=== PATIENT | male | born 1965 | race Caucasian/White ===

== ENCOUNTER 2021-12-22 01:44 | Emergency (ER) | payer OTHER ==
[2021-12-22] MEDS ORDERED: NA CHLORIDE 0.9% 1,000 ML ONE (02:22)
[2021-12-22 02:52] LABS: Protime INR 1.06
[2021-12-22 03:43] LABS: Absolute Lymphocytes (CBC) 2.1 K/uL (0.7-4.9); Hematocrit 38.6 % (39.6-49.0); Lymphocytes % 24.9 % (15.3-44.8); MCV 94.7 fL (80-100); MPV 8.3 fL (7.6-11.3); RBC Red Blood Cell Count 4.07 M/uL (4.33-5.43)
[2021-12-22 04:05] LABS: ALT/SGPT 65 U/L (12-78); AST/SGOT 69 U/L (15-37); Albumin 3.9 g/dL (3.4-5.0); Alkaline Phosphatase 83 U/L (45-117); BUN Blood Urea Nitrogen 33 mg/dL (7-18); Bicarbonate 25 mmol/L (21-32); Bilirubin Direct 0.4 mg/dL (0-0.2); Bilirubin Total 1.8 mg/dL (0.2-1.0); Glomerular Filtration Rate 79 ml/min (=/>90); Glucose Level 140 mg/dL (74-106); Potassium 3.6 mmol/L (3.5-5.1); Protein, Total 7.9 g/dL (6.4-8.2); Sodium Level 135 mmol/L (136-145)
--- NOTE | 2021-12-22 04:12 | ER ---
Nurse's Notes [facility] Name: José Miguel Brandon Age: 56 yrs Sex: Male : 1965 Arrival Date: 12/22/2021 Time: 01:46 Bed 19 Private MD: Diagnosis: Insomnia;Alcohol abuse;Other depressive episodes;Homelessness;Rhabdomyolysis Presentation: 12/22 01:51 Chief complaint: Patient states: "I have been watching trees talking to each other, I tw5 have been walking for 6 days I cannot sleep. I don't hear god anymore, but there aren't any missions, so out of mind out sight, everything hurts. I cannot relax. I just been walking and I am depressed.". Coronavirus screen: Vaccine status: Patient reports being unvaccinated. Ebola Screen: Patient negative for fever greater than or equal to 101.5 degrees Fahrenheit, and additional compatible Ebola Virus Disease symptoms Patient denies exposure to infectious person. Patient denies travel to an Ebola-affected area in the 21 days before illness onset. Initial Sepsis Screen: Does the patient meet any 2 criteria? No. Patient's initial sepsis screen is negative. Does the patient have a suspected source of infection? No. Patient's initial sepsis screen is negative. Risk Assessment: Do you want to hurt yourself or someone else? Patient reports no desire to harm self or others. Onset of symptoms is unknown. 01:51 Method Of Arrival: Ambulatory tw5 01:51 Acuity: LUIS FERNANDO 2 tw5 Triage Assessment: 01:53 General: Appears unkempt, Behavior is anxious. Pain: Pain currently is 10 out of 10 on tw5 a pain scale. Historical: - Allergies: 01:53 No Known Allergies; tw5 - Home Meds: 01:53 None [Active]; tw5 - PMHx: 01:53 Depressive disorder; 5 - PSHx: 01:53 Appendectomy; tw5 - Immunization history:: Flu vaccine is not up to date. - Social history:: Smoking status: Reported history of juuling and/or vaping. - Family history:: not pertinent. Screenin:54 Abuse screen: Denies threats or abuse. Denies injuries from another. Nutritional tw5 screening: Had unintentional weight loss of 10 pounds or more. Tuberculosis screening: No symptoms or risk factors identified. Fall Risk None identified. Vital Signs: 01:51 BP 112 / 77; Pulse 98; Resp 18; Temp 98.1; Pulse Ox 100% on R/A; Weight 72.57 kg; tw5 Height 6 ft. 2 in. (187.96 cm); Pain 10/10; 03:58 BP 127 / 91; Pulse 105; Resp 17; Pulse Ox 94% on R/A; ke1 04:48 BP 130 / 89; Pulse 98; Resp 19; Temp 98.0; Pulse Ox 97% on R/A; ke1 01:51 Body Mass Index 20.54 (72.57 kg, 187.96 cm) tw5 ED Course: 01:46 Patient arrived in ED. bp1 01:53 Triage completed. tw5 01:53 Arm band placed on Patient placed in an exam room. tw5 01:54 Placed in gown. tw5 01:56 Kevin Anthony MD is Attending Physician. zeina 01:59 Walker Wolf, LANCE is Primary Nurse. as6 03:02 Inserted saline lock: 22 gauge in left forearm, using aseptic technique. ke1 03:33 Inserted saline lock: 20 gauge in right forearm, using aseptic technique. ke1 03:33 \\T\\\\T\\ G LFA infiltrated and d/c. ke 1 04:35 Notified ED physician of a critical lab result(s). CPK 1239. tw5 04:47 No provider procedures requiring assistance completed. ke1 Administered Medications: 03:02 Drug: NS 0.9% 1000 ml Route: IV; Rate: 1 bolus; Site: left forearm; ke1 04:00 Follow up: IV Status: Completed infusion ke1 Medication: 04:48 VIS not applicable for this client. ke1 Outcome: 04:12 Discharge ordered by . zeina 04:48 Discharged to home ambulatory. ke1 04:48 Condition: good 04:48 Discharge instructions given to patient. 04:49 Patient left the ED. ke1 Signatures: Kevin Anthony MD MD cha Pania[place], Brittany bp1 Wood, Tiffany tw5 Walker Wolf, RN RN as6 Shelly Serra RN RN ke1
--- NOTE | 2021-12-22 04:12 | EDPHYS ---
Physician Documentation [facility] Name: José Miguel Brandon Age: 56 yrs Sex: Male : 1965 Arrival Date: 12/22/2021 Time: 01:46 Bed 19 Private MD: NALINI Physician Kevin Anthony HPI: 12/22 02:52 This 56 yrs old Male presents to ER via Ambulatory with complaints of Pain zeina All Over, Hallucinations. 02:52 The patient presents to the emergency department with anxiety, depression, over unknown zeina circumstances. Onset: The symptoms/episode began/occurred 2 week(s) ago. Past psychiatric history: Prior diagnosis: depression, Psychiatric medications include: none. DEPRESSED , HOMELESS. Associated signs and symptoms: Pertinent positives; hallucinations. Onset: The symptoms/episode began/occurred 2 day(s) ago. Severity of symptoms: At their worst the symptoms were mild moderate in the emergency department the symptoms are unchanged. The patient has experienced similar episodes in the past, several times. Historical: - Allergies: 01:53 No Known Allergies; tw - Home Meds: 01:53 None [Active]; tw5 - PMHx: 01:53 Depressive disorder; - PSHx: 01:53 Appendectomy; tw - Immunization history:: Flu vaccine is not up to date. - Social history:: Smoking status: Reported history of juuling and/or vaping. - Family history:: not pertinent. ROS: 02:52 Constitutional: Negative for fever, chills, and weight loss, Eyes: Negative for injury, zeina pain, redness, and discharge, ENT: Negative for injury, pain, and discharge, Neck: Negative for injury, pain, and swelling, Cardiovascular: Negative for chest pain, palpitations, and edema, Respiratory: Negative for shortness of breath, cough, wheezing, and pleuritic chest pain, Abdomen/GI: Negative for abdominal pain, nausea, vomiting, diarrhea, and constipation, Back: Negative for injury and pain, : Negative for injury, bleeding, discharge, and swelling, MS/Extremity: Negative for injury and deformity, Skin: Negative for injury, rash, and discoloration, Neuro: Negative for headache, weakness, numbness, tingling, and seizure, Endocrine: Negative for neck swelling, polydipsia, polyuria, polyphagia, and marked weight changes, Hematologic/Lymphatic: Negative for swollen nodes, abnormal bleeding, and unusual bruising. 02:52 Psych: Positive for alcohol dependence, insomnia. Exam: 02:52 Constitutional: This is a well developed, well nourished patient who is awake, alert, zeina and in no acute distress. Head/Face: Normocephalic, atraumatic. Eyes: Pupils equal round and reactive to light, extra-ocular motions intact. Lids and lashes normal. Conjunctiva and sclera are non-icteric and not injected. Cornea within normal limits. Periorbital areas with no swelling, redness, or edema. ENT: Nares patent. No nasal discharge, no septal abnormalities noted. Tympanic membranes are normal and external auditory canals are clear. Oropharynx with no redness, swelling, or masses, exudates, or evidence of obstruction, uvula midline. Mucous membranes moist. Neck: Trachea midline, no thyromegaly or masses palpated, and no cervical lymphadenopathy. Supple, full range of motion without nuchal rigidity, or vertebral point tenderness. No Meningismus. Chest/axilla: Normal chest wall appearance and motion. Nontender with no deformity. No lesions are appreciated. Cardiovascular: Regular rate and rhythm with a normal S1 and S2. No gallops, murmurs, or rubs. Normal PMI, no JVD. No pulse deficits. Respiratory: Lungs have equal breath sounds bilaterally, clear to auscultation and percussion. No rales, rhonchi or wheezes noted. No increased work of breathing, no retractions or nasal flaring. Abdomen/GI: Soft, non-tender, with normal bowel sounds. No distension or tympany. No guarding or rebound. No evidence of tenderness throughout. Back: No spinal tenderness. No costovertebral tenderness. Full range of motion. Male : Normal genitalia with no discharge or lesions. Skin: Warm, dry with normal turgor. Normal color with no rashes, no lesions, and no evidence of cellulitis. MS/ Extremity: Pulses equal, no cyanosis. Neurovascular intact. Full, normal range of motion. Neuro: Awake and alert, GCS 15, oriented to person, place, time, and situation. Cranial nerves II-XII grossly intact. Motor strength 5/5 in all extremities. Sensory grossly intact. Cerebellar exam normal. Normal gait. 02:52 Psych: Behavior/mood is pleasant, cooperative, Affect is animated, Oriented to person, place, time, Patient has no thoughts/intents to harm self or others. Memory is normal. Delusions/hallucinations are present and described as TREES TALKING TO ME. 03:25 ECG was reviewed by the Attending Physician. [facility] [place] Vital Signs: 01:51 BP 112 / 77; Pulse 98; Resp 18; Temp 98.1; Pulse Ox 100% on R/A; Weight 72.57 kg; tw5 Height 6 ft. 2 in. (187.96 cm); Pain 10/10; 03:58 BP 127 / 91; Pulse 105; Resp 17; Pulse Ox 94% on R/A; ke1 04:48 BP 130 / 89; Pulse 98; Resp 19; Temp 98.0; Pulse Ox 97% on R/A; ke1 01:51 Body Mass Index 20.54 (72.57 kg, 187.96 cm) tw5 MDM: 01:57 Patient medically screened. zeina 02:52 Differential diagnosis: acute psychotic break, depression. Differential Diagnosis zeina altered mental status. Data reviewed: vital signs, nurses notes, lab test result(s), EKG. Data interpreted: monitor technician: rate is 98 beats/min, rhythm is regular, Pulse oximetry: on room air is 100 %. Test interpretation: by ED physician or midlevel provider: ECG. Counseling: I had a detailed discussion with the patient and/or guardian regarding: the historical points, exam findings, and any diagnostic results supporting the discharge/admit diagnosis, lab results, radiology results, the need for outpatient follow up, for definitive care, a family practitioner, a psychiatrist. 12/22 01:57 Order name: Acetaminophen; Complete Time: 04:10 [facility] [place] 12/22 01:57 Order name: Basic Metabolic Panel; Complete Time: 04:10 [facility] [place] 12/22 01:57 Order name: CBC with Diff; Complete Time: 04:10 [facility] [place] 12/22 01:57 Order name: ETOH Level; Complete Time: 04:10 [facility] [place] 12/22 01:57 Order name: Hepatic Function; Complete Time: 04:10 [facility] [place] 12/22 01:57 Order name: PT-INR; Complete Time: 04:10 [facility] [place] 12/22 01:57 Order name: Ptt, Activated; Complete Time: 04:10 [facility] [place] 12/22 01:57 Order name: Salicylate; Complete Time: 04:10 [facility] [place] 12/22 01:57 Order name: Urine Drug Screen [facility] [place] 12/22 01:57 Order name: EKG; Complete Time: 01:58 [facility] [place] 12/22 02:42 Order name: CK [facility] [place] 12/22 04:11 Order name: Diet Heart Healthy; Complete Time: 04:12 [facility] [place] 12/22 04:46 Order name: Urine Dipstick-Ancillary [facility] 12/22 01:57 Order name: EKG - Nurse/Tech; Complete Time: 02:35 [facility] 12/22 01:57 Order name: IV Saline Lock; Complete Time: 03:02 [facility] [place] 12/22 01:57 Order name: Labs collected and sent; Complete Time: 03:33 [facility] [place] 12/22 01:57 Order name: Suicide Screening ([place]); Complete Time: 02:02 [facility] [place] 12/22 01:57 Order name: Urine Dipstick-Ancillary (obtain specimen); Complete Time: 04:47 [facility] [place] EC:25 Rate is 75 beats/min. Rhythm is regular. QRS [place] is Normal. [place] interval is normal. QRS zeina interval is normal. QT interval is normal. No Q waves. T waves are Normal. No ST changes noted. Clinical impression: Normal ECG and No evidence of ischemia. Interpreted by me. Reviewed by me. Administered Medications: 03:02 Drug: NS 0.9% 1000 ml Route: IV; Rate: 1 bolus; Site: left forearm; ke1 04:00 Follow up: IV Status: Completed infusion ke1 Disposition Summary: 12/22/21 04:12 Discharge Ordered Location: Home zeina Problem: new zeina Symptoms: have improved zeina Condition: Stable zeina Diagnosis - Insomnia zeina - Alcohol abuse zeina - Other depressive episodes zeina - Homelessness zeina - Rhabdomyolysis zeina Followup: zeina - With: Private Physician - When: 2 - 3 days - Reason: Recheck today's complaints, Continuance of care, Re-evaluation by your physician Discharge Instructions: - Discharge Summary Sheet zeina - Insomnia zeina - Stress, Adult zeina - Major Depressive Disorder, Adult zeina - Managing Depression, Adult zeina - Rhabdomyolysis zeina Forms: - Medication Reconciliation Form zeina - Thank You Letter zeina - Antibiotic Education zeina - Prescription Opioid Use zeina Prescriptions: - Hydroxyzine HCl 25 mg Oral Tablet - take 2 tablet by ORAL route At bedtime As needed; 20 tablet; Refills: 0, zeina Product Selection Permitted Signatures: Dispatcher [employer] EDKevin Horton, MD MD zeina Wood, Bethanie tw5 Shelly Serra, RN RN ke1
[2021-12-22 04:46] LABS: Urine Blood Trace-intact (Negative); Urine Glucose Negative (Negative); Urine Protein Negative (Negative); Urine Specific Gravity >=1.030 (1.005-1.030); Urine pH 5.5 (5.0-7.0)
[2021-12-22 05:23] LABS: Barbiturates NEGATIVE (NEGATIVE); Benzodiazepines NEGATIVE (NEGATIVE); Cocaine NEGATIVE (NEGATIVE); METHAMPHETAM POSITIVE (NEGATIVE); Methadone NEGATIVE (NEGATIVE); Opiates NEGATIVE (NEGATIVE); Phencyclidine NEGATIVE (NEGATIVE); THC Cannibis NEGATIVE (NEGATIVE)
--- NOTE | 2021-12-22 15:55 | EKG ---
Test Date: 2021-12-22 Test Time: 02:22:59 Associate Professor Of English: MEASUREMENT RESULTS: Intervals: Rate: 75 MT: 130 QRSD: 82 QT: 402 QTc: 448 [place]: P: 20 MT: 130 QRS: 86 T: 63 INTERPRETIVE STATEMENTS: Normal sinus rhythm Normal ECG No previous ECG available for comparison Electronically Signed On 12-22-21 15:54:19 CDT by Javier Be
[2021-12-23 19:37] VITALS: BP 130/89; TEMP 98; O2SAT 97
== END 2021-12-22 04:49 | disposition home or self-care (01) ==
LOC: ER 01:44
DX: M62.82 Rhabdomyolysis (principal); G47.00 Insomnia, unspecified; F10.20 Alcohol dependence, uncomplicated; F32.89 Other specified depressive episodes; Z59.00 Homelessness unspecified
CPT/HCPCS: 93005; 85025; 80048; 36415; 80320; 82550; 80329 ×2; 85610; 80076; 85730; 81003; 80307; 96360; 99283; J7030

== ENCOUNTER 2022-11-07 20:21 | Inpatient (IN) | payer OTHER ==
--- NOTE | 2022-11-07 20:40 | ER ---
Nurse's Notes [facility] Name: José Miguel Brandon Age: 57 yrs Sex: Male : 1965 Arrival Date: 11/07/2022 Time: 20:21 Bed 3 Private MD: Diagnosis: Cellulitis and acute lymphangitis of other parts of limb;Alcohol abuse;Edema, unspecified;Hypokalemia Presentation: 11/07 20:29 Chief complaint: EMS states: Pt reports MICHELLE lower extremity swelling. It is worse on jb4 the right as well as his pain. He reports pain in all his joints. Coronavirus screen: At this time, the client does not indicate any symptoms associated with coronavirus-19. Ebola Screen: No symptoms or risks identified at this time. Initial Sepsis Screen: Does the patient meet any 2 criteria? RR > 20 per min. Yes Does the patient have a suspected source of infection? No. Patient's initial sepsis screen is negative. Risk Assessment: Do you want to hurt yourself or someone else? Patient reports no desire to harm self or others. Onset of symptoms was November 07, 2022. Transition of care: patient was not received from another setting of care. 20:29 Method Of Arrival: EMS: [facility] jb4 20:29 Acuity: LUIS FERNANDO 3 jb4 Triage Assessment: 20:31 General: Appears in no apparent distress. uncomfortable, Behavior is calm, cooperative, jb4 appropriate for age. Pain: Complains of pain in right leg and left leg Pain does not radiate. Pain currently is 10 out of 10 on a pain scale. EENT: No signs and/or symptoms were reported regarding the EENT system. Neuro: Level of Consciousness is awake, alert, obeys commands, Oriented to person, place, time, situation. Cardiovascular: Patient's skin is warm and dry. Respiratory: Airway is patent Respiratory effort is even, unlabored, Respiratory pattern is regular, symmetrical. GI: No signs and/or symptoms were reported involving the gastrointestinal system. : No signs and/or symptoms were reported regarding the genitourinary system. Derm: Skin is intact, Skin is pink, warm \T\ dry. Redness noted to the right lower extremity and warmth. Musculoskeletal: Circulation, motion, and sensation intact. Range of motion: intact in all extremities. Historical: - Allergies: 20:31 No Known Allergies; jb4 - Home Meds: 20:31 None [Active]; jb4 - PMHx: 20:31 depressive disorder; jb4 - PSHx: 20:31 Appendectomy; jb4 - Immunization history:: Adult Immunizations up to date. - Social history:: Smoking status: Patient reports the use of cigarette tobacco products, smokes one pack cigarettes per day. Screenin/05 00:19 [facility] ED Fall Risk Assessment (Adult) History of falling in the last 3 months, rv including since admission No falls in past 3 months (0 pts) Confusion or Disorientation No (0 pts) Intoxicated or Sedated No (0 pts) Impaired Gait Yes (1 pt) Mobility Assist Device Used No (0 pt) Altered Elimination No (0 pt) Score/Fall Risk Level 0 - 2 = Low Risk Oriented to surroundings, Maintained a safe environment, Educated pt \T\ family on fall prevention, incl call for assistance when getting out of bed, Assessed \T\ reinforced patient's understanding of fall precautions, Provided non-skid footwear, Hourly rounding (assess needs \T\ fall precautionary measures) done, Used ambulatory aids as needed (educated on \T\ assisted with), Used gait belt as appropriate. Abuse screen: Denies threats or abuse. Denies injuries from another. Nutritional screening: No deficits noted. Tuberculosis screening: No symptoms or risk factors identified. Assessment: 11/07 21:01 Reassessment: see triage note. jb4 22:00 Reassessment: Patient appears in no apparent distress at this time. Patient and/or jb4 family updated on plan of care and expected duration. Pain level reassessed. Patient is alert, oriented x 3, equal unlabored respirations, skin warm/dry/pink. 23:00 Reassessment: No changes from previously documented assessment. Patient and/or family jb4 updated on plan of care and expected duration. Pain level reassessed. Patient is alert, oriented x 3, equal unlabored respirations, skin warm/dry/pink. 23:00 General: Appears uncomfortable, Behavior is calm, cooperative. rv 23:00 Pain: Complains of pain in left leg and right leg. Neuro: Level of Consciousness is rv awake, alert, obeys commands, Oriented to person, place, time, situation. Cardiovascular: Capillary refill < 3 seconds Patient's skin is warm and dry. Respiratory: Airway is patent Respiratory effort is even, unlabored. GI: No signs and/or symptoms were reported involving the gastrointestinal system. : No signs and/or symptoms were reported regarding the genitourinary system. Derm: Skin is intact. Musculoskeletal: Swelling present in left leg and right leg. 11/08 00:11 Reassessment: Patient appears in no apparent distress at this time. Patient and/or jb4 family updated on plan of care and expected duration. Pain level reassessed. Patient is alert, oriented x 3, equal unlabored respirations, skin warm/dry/pink. Vital Signs: 11/07 20:29 BP 113 / 73; Pulse 86; Resp 23; Temp 98.9(O); Pulse Ox 97% on R/A; Weight 78.93 kg (M); jb4 Height 6 ft. 2 in. (R); Pain 10/10; 21:59 BP 130 / 80; Pulse 82; Resp 20; Pulse Ox 99% ; jb4 23:00 BP 121 / 83; Pulse 82; Resp 16; Pulse Ox 98% on R/A; jb4 11/08 00:00 BP 122 / 84; Pulse 76; Resp 16; Pulse Ox 96% on R/A; jb4 11/07 20:29 Body Mass Index 22.34 (78.93 kg, 187.96 cm) jb4 11/07 20:29 Pain Scale: Adult jb4 Delmer Coma Score: 00:23 Eye Response: spontaneous(4). Motor Response: obeys commands(6). Verbal Response: rv oriented(5). Total: 15. ED Course: 11/07 20:25 Patient arrived in ED. wm 20:26 Kevin Anthony MD is Attending Physician. zeina 20:28 John Paul Giraldo, RN is Primary Nurse. jb4 20:31 Triage completed. jb4 20:31 Arm band placed on right wrist. jb4 20:38 Karson Smallwood MD is Hospitalizing Provider. zeina 20:42 Basil Barone MD is Hospitalizing Provider. [facility] 20:45 Inserted saline lock: 20 gauge in right forearm, using aseptic technique. Blood jb4 collected. 20:45 Initial lab(s) drawn, by pa, sent to lab. First set of blood cultures drawn by pa. jb4 20:49 Second set of blood cultures drawn by me. Inserted saline lock: 20 gauge in right jb4 forearm, using aseptic technique. Blood collected. 21:03 XRAY Chest (1 view) In Process Unspecified. EDMS 21:31 US Extremity Venous W Compression Michelle In Process Unspecified. EDMS 23:00 Patient has correct armband on for positive identification. rv 23:00 Provided Education on: ANTIBIOTIC. rv 11/08 00:20 No provider procedures requiring assistance completed. Patient admitted, IV remains in rv place. Administered Medications: 11/07 21:31 Drug: NS 0.9% IV 1000 ml Route: IV; Rate: 1 bolus; Site: right forearm; [facility] 11/08 00:22 Follow up: IV Status: Completed infusion; IV Intake: 1000ml rv 11/07 21:31 Drug: Thiamine IV 100 mg Route: IV; Rate: per protocol; Site: right forearm; [facility] 11/08 00:22 Follow up: Response: No adverse reaction; IV Status: Completed infusion rv 11/07 21:31 Drug: Piperacillin-Tazobactam IVPB 3.375 grams Route: IVPB; Infused Over: 60 mins; [facility] Site: right forearm; 11/08 00:22 Follow up: Response: No adverse reaction; IV Status: Completed infusion; IV Intake: rv 100ml 11/07 21:31 Drug: Famotidine IVP 20 mg Route: IVP; Site: right forearm; [facility] 11/08 00:21 Follow up: Response: No adverse reaction 11/07 21:31 Drug: Banana Bag - (NS 0.9% IV 1000 ml, foLIC Acid IVPB 1 mg, Thiamine IV 100 mg, 4 Multivitamin IV 1 amp) Route: IV; Rate: 125 ml/hr; Site: right forearm; 11/08 00:21 Follow up: IV Status: Infusion continued upon admission rv 11/07 22:13 Drug: Potassium PO Effervescent Tablet 50 mEq Route: PO; [facility] 11/08 00:21 Follow up: Response: No adverse reaction rv 11/07 22:13 Drug: Nicoderm CQ Transdermal Patch 21 mg/24 hr 1 patches {Note: Right upper arm.} 4 Route: Transdermal; Site: affected area; 11/08 00:22 Follow up: Response: No adverse reaction 11/07 22:59 Drug: vancoMYCIN IVPB 1.5 grams Route: IVPB; Rate: calculated rate; Site: right forearm;jb4 11/08 00:22 Follow up: IV Status: Completed infusion; IV Intake: 250ml rv Medication: 00:20 VIS not applicable for this client. rv Intake: 00:22 IV: 250ml; Total: 250ml. rv 00:22 IV: 100ml; Total: 350ml. rv 00:22 IV: 1000ml; Total: 1350ml. rv Outcome: 11/07 20:39 Decision to Hospitalize by Provider. zeina 11/08 00:20 Admitted to Med/surg accompanied by tech, via stretcher, room 231, with chart, Report rv called to DEMETRI LUCAS Condition: stable Instructed on the need for admit. 00:23 Patient left the ED. rv Signatures: Dispatcher [employer] EDKevin Horton MD MD cha Bryson, James, RN RN jb4 Juvencio Mcgregor RN RN Laney Benoit
--- NOTE | 2022-11-07 20:40 | EDPHYS ---
Physician Documentation [facility] Name: José Miguel Brandon Age: 57 yrs Sex: Male : 1965 Arrival Date: 11/07/2022 Time: 20:21 Bed 3 Private MD: NALINI Physician Kevin Anthony HPI: 11/07 20:31 This 57 yrs old Male presents to ER via Unassigned with complaints of Leg zeina Swelling. 20:31 The patient presents with pain, swelling, tenderness. The complaints affect the right zeina leg and left leg. Context: The problem was sustained at an unknown site, resulted from an unknown cause, the patient can partially bear weight, the patient is able to ambulate, with mild difficulty. Onset: The symptoms/episode began/occurred 4 day(s) ago. Modifying factors: The symptoms are alleviated by elevating leg, remaining still, the symptoms are aggravated by nothing. Associated signs and symptoms: Pertinent positives: fever, swelling, warmth, weakness. Severity of symptoms: At their worst the symptoms were moderate, in the emergency department the symptoms are unchanged. The patient has not experienced similar symptoms in the past. Historical: - Allergies: 20:31 No Known Allergies; jb4 - Home Meds: 20:31 None [Active]; jb4 - PMHx: 20:31 depressive disorder; jb4 - PSHx: 20:31 Appendectomy; jb4 - Immunization history:: Adult Immunizations up to date. - Social history:: Smoking status: Patient reports the use of cigarette tobacco products, smokes one pack cigarettes per day. ROS: 20:32 Constitutional: Negative for fever, chills, and weight loss, Eyes: Negative for injury, zeina pain, redness, and discharge, ENT: Negative for injury, pain, and discharge, Neck: Negative for injury, pain, and swelling, Cardiovascular: Negative for chest pain, palpitations, and edema, Respiratory: Negative for shortness of breath, cough, wheezing, and pleuritic chest pain, Abdomen/GI: Negative for abdominal pain, nausea, vomiting, diarrhea, and constipation, Back: Negative for injury and pain, : Negative for injury, bleeding, discharge, and swelling, Neuro: Negative for headache, weakness, numbness, tingling, and seizure, Psych: Negative for depression, anxiety, suicide ideation, homicidal ideation, and hallucinations, Allergy/Immunology: Negative for hives, rash, and allergies, Endocrine: Negative for neck swelling, polydipsia, polyuria, polyphagia, and marked weight changes, Hematologic/Lymphatic: Negative for swollen nodes, abnormal bleeding, and unusual bruising. 20:32 MS/extremity: Positive for erythema, pain, swelling, tenderness, of the right leg and left leg. 20:32 Skin: Positive for erythema, swelling, of the right leg and left leg. Exam: 20:32 Constitutional: This is a well developed, well nourished patient who is awake, alert, zeina and in no acute distress. Head/Face: Normocephalic, atraumatic. Eyes: Pupils equal round and reactive to light, extra-ocular motions intact. Lids and lashes normal. Conjunctiva and sclera are non-icteric and not injected. Cornea within normal limits. Periorbital areas with no swelling, redness, or edema. ENT: Nares patent. No nasal discharge, no septal abnormalities noted. Tympanic membranes are normal and external auditory canals are clear. Oropharynx with no redness, swelling, or masses, exudates, or evidence of obstruction, uvula midline. Mucous membranes moist. Neck: Trachea midline, no thyromegaly or masses palpated, and no cervical lymphadenopathy. Supple, full range of motion without nuchal rigidity, or vertebral point tenderness. No Meningismus. Chest/axilla: Normal chest wall appearance and motion. Nontender with no deformity. No lesions are appreciated. Cardiovascular: Regular rate and rhythm with a normal S1 and S2. No gallops, murmurs, or rubs. Normal PMI, no JVD. No pulse deficits. Respiratory: Lungs have equal breath sounds bilaterally, clear to auscultation and percussion. No rales, rhonchi or wheezes noted. No increased work of breathing, no retractions or nasal flaring. Abdomen/GI: Soft, non-tender, with normal bowel sounds. No distension or tympany. No guarding or rebound. No evidence of tenderness throughout. Back: No spinal tenderness. No costovertebral tenderness. Full range of motion. Male : Normal genitalia with no discharge or lesions. Neuro: Awake and alert, GCS 15, oriented to person, place, time, and situation. Cranial nerves II-XII grossly intact. Motor strength 5/5 in all extremities. Sensory grossly intact. Cerebellar exam normal. Normal gait. Psych: Awake, alert, with orientation to person, place and time. Behavior, mood, and affect are within normal limits. 20:32 Skin: cellulitis, that is moderate. 20:32 Skin: induration, that is mild is noted. 20:47 ECG was reviewed by the Attending Physician. [facility] Vital Signs: 20:29 BP 113 / 73; Pulse 86; Resp 23; Temp 98.9(O); Pulse Ox 97% on R/A; Weight 78.93 kg (M); jb4 Height 6 ft. 2 in. (R); Pain 10/10; 21:59 BP 130 / 80; Pulse 82; Resp 20; Pulse Ox 99% ; jb4 23:00 BP 121 / 83; Pulse 82; Resp 16; Pulse Ox 98% on R/A; [facility] 11/08 00:00 BP 122 / 84; Pulse 76; Resp 16; Pulse Ox 96% on R/A; [facility] 11/07 20:29 Body Mass Index 22.34 (78.93 kg, 187.96 cm) [facility] 11/07 20:29 Pain Scale: Adult [facility] Delmer Coma Score: 00:23 Eye Response: spontaneous(4). Motor Response: obeys commands(6). Verbal Response: rv oriented(5). Total: 15. MDM: 11/07 20:35 Differential diagnosis: contusion, abrasion. Differential Diagnosis sepsis. Data [facility] reviewed: vital signs, nurses notes, EMS record, lab test result(s), EKG, radiologic studies, doppler, plain films. Consideration of Admission/Observation Patient was admitted/placed on observation. Escalation of care including admission/observation considered. I considered the following discharge prescriptions or medication management in the emergency department Medications were administered in the Emergency Department. See MAR. Test considered but Not performed: Other Details no ct lower extremities. Care significantly affected by the following chronic conditions: Hypertension, alcoholism, depression. Counseling: I had a detailed discussion with the patient and/or guardian regarding: the historical points, exam findings, and any diagnostic results supporting the discharge/admit diagnosis, lab results, radiology results, the need for further work-up and treatment in the hospital. 20:39 Patient medically screened. [facility] 11/07 20:29 Order name: Basic Metabolic Panel; Complete Time: 21:42 11/07 20:29 Order name: CBC with Diff; Complete Time: 21:24 11/07 20:29 Order name: LFT's; Complete Time: 21:42 11/07 20:29 Order name: Magnesium; Complete Time: 21:42 11/07 20:29 Order name: NT PRO-BNP; Complete Time: 21:42 11/07 20:29 Order name: PT-INR; Complete Time: 21:24 zeina 11/07 20:29 Order name: Troponin HS; Complete Time: 21:42 11/07 20:29 Order name: Lactate w/ 2H reflex if indic.; Complete Time: 21:42 11/07 20:29 Order name: Blood Culture Adult (2) 11/07 20:29 Order name: Urinalysis w/ reflexes 11/07 20:29 Order name: ETOH Level; Complete Time: 22:04 zeina 11/07 20:29 Order name: Asprin; Complete Time: 21:45 [facility] 11/07 20:29 Order name: Acetaminophen; Complete Time: 21:42 [facility] 11/07 20:29 Order name: XRAY Chest (1 view); Complete Time: 21:42 11/07 20:29 Order name: US Extremity Venous W Compression Solo; Complete Time: 21:42 11/07 20:29 Order name: EKG; Complete Time: 20:31 zeina 11/07 20:29 Order name: Cardiac monitoring; Complete Time: 20:33 [facility] 11/07 20:29 Order name: EKG - Nurse/Tech; Complete Time: 21:00 [facility] 11/07 20:29 Order name: IV Saline Lock; Complete Time: 21:00 [facility] 11/07 20:29 Order name: Labs collected and sent; Complete Time: 21:00 [facility] 11/07 20:29 Order name: O2 Per Protocol; Complete Time: 20:33 [facility] 11/07 20:29 Order name: O2 Sat Monitoring; Complete Time: 20:33 [facility] EC:47 Rate is 83 beats/min. Rhythm is regular. QRS [place] is Normal. [place] interval is normal. QRS zeina interval is normal. QT interval is normal. No Q waves. T waves are Normal. No ST changes noted. Clinical impression: NSR w/ Non-specific ST/T Changes and No evidence of ischemia. Interpreted by me. Reviewed by me. Administered Medications: 21:31 Drug: NS 0.9% IV 1000 ml Route: IV; Rate: 1 bolus; Site: right forearm; jb4 11/08 00:22 Follow up: IV Status: Completed infusion; IV Intake: 1000ml rv 11/07 21:31 Drug: Thiamine IV 100 mg Route: IV; Rate: per protocol; Site: right forearm; jb4 11/08 00:22 Follow up: Response: No adverse reaction; IV Status: Completed infusion rv 11/07 21:31 Drug: Piperacillin-Tazobactam IVPB 3.375 grams Route: IVPB; Infused Over: 60 mins; jb4 Site: right forearm; 11/08 00:22 Follow up: Response: No adverse reaction; IV Status: Completed infusion; IV Intake: rv 100ml 11/07 21:31 Drug: Famotidine IVP 20 mg Route: IVP; Site: right forearm; jb4 11/08 00:21 Follow up: Response: No adverse reaction rv 11/07 21:31 Drug: Banana Bag - (NS 0.9% IV 1000 ml, foLIC Acid IVPB 1 mg, Thiamine IV 100 mg, jb4 Multivitamin IV 1 amp) Route: IV; Rate: 125 ml/hr; Site: right forearm; 11/08 00:21 Follow up: IV Status: Infusion continued upon admission rv 11/07 22:13 Drug: Potassium PO Effervescent Tablet 50 mEq Route: PO; jb4 11/08 00:21 Follow up: Response: No adverse reaction rv 11/07 22:13 Drug: Nicoderm CQ Transdermal Patch 21 mg/24 hr 1 patches {Note: Right upper arm.} 4 Route: Transdermal; Site: affected area; 11/08 00:22 Follow up: Response: No adverse reaction rv 11/07 22:59 Drug: vancoMYCIN IVPB 1.5 grams Route: IVPB; Rate: calculated rate; Site: right forearm;jb4 11/08 00:22 Follow up: IV Status: Completed infusion; IV Intake: 250ml rv Disposition Summary: 11/07/22 20:39 Hospitalization Ordered Hospitalization Status: Inpatient Admission zeina Location: Telemetry/[facility] (Inpatient) zeina Condition: Stable zeina Problem: new zeina Symptoms: are unchanged zeina Bed/Room Type: Standard zeina Provider: Basil Barone(08/04/23 20:42) zeina Room Assignment: 231(11/08/22 00:06) Diagnosis - Cellulitis and acute lymphangitis of other parts of limb zeina - Alcohol abuse zeina - Edema, unspecified zeina - Hypokalemia zeina Forms: - Medication Reconciliation Form zeina - SBAR form zeina Signatures: Dispatcher [employer] EDKevin Horton MD MD cha Attema, Lee, SUPERVISOR COOK ROOM-C SUPERVISOR COOK ROOM-Cla1 Lulu Lucero RN RN cg John Paul Giraldo RN RN jb4 Juvencio Mcgrgeor RN RN rv Corrections: (The following items were deleted from the chart) 11/07 20:42 20:39 Karson Smallwood cha [facility] 11/08 00:06 11/07 20:39 zeina
[2022-11-07 21:15] LABS: Absolute Lymphocytes (CBC) 1.3 K/uL (0.7-4.9); Hematocrit 35.6 % (39.6-49.0); Lymphocytes % 10.8 % (15.3-44.8); MCV 94.5 fL (80-100); MPV 7.4 fL (7.6-11.3); Platelets 304 thou/uL (152-406); RBC Red Blood Cell Count 3.76 M/uL (4.33-5.43)
[2022-11-07 21:16] LABS: Protime INR 1.19
[2022-11-07] MEDS ORDERED: THIAMINE 200 MG/2 ML INJ ONE (21:17)
[2022-11-07] MEDS ORDERED: MULTIVITAMINS 10 ML VIAL (INJ) IV ONE (21:18)
[2022-11-07] MEDS ORDERED: VANCOMYCIN 500 MG/VIAL ONE (21:18)
[2022-11-07] MEDS ORDERED: NA CHLORIDE 0.9% 500 ML ONE (21:18)
[2022-11-07] MEDS ORDERED: FAMOTIDINE 20 MG/2 ML VIAL IV ONE (21:18)
[2022-11-07] MEDS ORDERED: NA CHLORIDE 0.9% 100 ML ONE (21:18)
[2022-11-07] MEDS ORDERED: VANCOMYCIN 1 GM/VIAL ONE (21:18)
[2022-11-07] MEDS ORDERED: NA CHLORIDE 0.9% 2,000 ML ONE (21:19)
[2022-11-07] MEDS ORDERED: PIPERACIL/TAZO 3.375 GM VIAL IV ONE (21:19)
[2022-11-07] MEDS ORDERED: FOLIC ACID 5 MG/ML VIAL ONE (21:19)
--- NOTE | 2022-11-07 21:33 | RAD REPORT ---
EXAM DESCRIPTION: Mica Single View11/07/2022 9:01 pm CLINICAL HISTORY: cough COMPARISON: none FINDINGS: The lungs appear clear of acute infiltrate. The heart is normal size IMPRESSION: No acute abnormalities displayed
[2022-11-07 21:37] LABS: ALT/SGPT 49 U/L (16-61); AST/SGOT 35 U/L (15-37); Albumin 3.2 g/dL (3.4-5.0); Alkaline Phosphatase 78 U/L (45-117); BUN Blood Urea Nitrogen 14 mg/dL (7-18); Bicarbonate 25 mEq/L (21-32); Bilirubin Direct 0.5 mg/dL (0-0.2); Bilirubin Indirect, Calculated 1.2 mg/dL (0.2-0.8); Bilirubin Total 1.7 mg/dL (0.2-1.0); Glomerular Filtration Rate 77 ml/min (=/>90); Glucose Level 119 mg/dL (74-106); Magnesium 1.9 mg/dL (1.6-2.4); NT PRO-BNP 737 pg/mL (<125); Potassium 3.3 mEq/L (3.5-5.1); Protein, Total 7.1 g/dL (6.4-8.2); Sodium Level 135 mEq/L (136-145)
--- NOTE | 2022-11-07 21:39 | RAD REPORT ---
EXAM DESCRIPTION: USExtrem Venous W Compress Bil11/07/2022 9:29 pm CLINICAL HISTORY: Leg pain COMPARISON: none FINDINGS: The common femoral, superficial femoral, greater saphenous, popliteal and posterior tibial veins bilaterally are compressible and demonstrate augmentation. Doppler demonstrates good flow. 3.7 x 1.2 centimeter right inguinal lymph node Grayscale, color and spectral analysis performed on all vessels IMPRESSION: No evidence of deep venous thrombosis involving either lower extremity. 3.7 x 1.2 centimeter right inguinal lymph node probably reactive in nature. However, follow up ultras ound 3 months recommended to assess stability/resolution
--- NOTE | 2022-11-07 21:58 | P.HP ---
Certification for Inpatient Patient admitted to: Inpatient With expected LOS: >2 Midnights Patient will require the following post-hospital care: None Practitioner: I am a practitioner with admitting privileges, knowledge of patient current condition, hospital course, and medical plan of care. Services: Services provided to patient in accordance with Admission requirements found in Title 42 Section 412.3 of the Code of Federal Regulations Patient History Date of Service: 11/07/22 Reason for admission: Right lower extremity cellulitis History of Present Illness: 57-year-old male with history of depression, chronic alcohol use disorder presents emergency department chief complaint of swelling and pain to the right lower extremity. He reports increasing pain and swelling to the right lower extremity over the course of last 3 to 4 days. He has been unable to walk on it. He was evaluated in the emergency department his labs are significant for leukocytosis white blood cell count 11.9 hemoglobin 11.8 hematocrit 35.6 sodium 135 potassium 3.3 lactic acid 2.1 T. bili 1.7 urinalysis pending, he reports he drinks usually about 15 beers a day but has not had a drink in 3 days, his alcohol level is less than 10. No signs of alcohol withdrawal at this time. He will be admitted for cellulitis of right lower extremity. - Past Medical/Surgical History -: Depression -: Chronic alcohol use -: Appendectomy Psychosocial/ Personal History: Homeless - Family History Family History: Reviewed- Non-Contributory - Social History Smoking Status: Never smoker Counseled patient to stop smoking for: less than 10 minutes Smoking therapy provided: Yes Alcohol use: Yes CD- Drugs: No Caffeine use: Yes Place of Residence: Home Review of Systems 10-point ROS is otherwise unremarkable Musculoskeletal: Leg Pain Physical Examination - Physical Exam General: Alert, In no apparent distress, Oriented x3 HEENT: Atraumatic, PERRLA, Mucous membr. moist/pink, EOMI, Sclerae nonicteric Neck: Supple, 2+ carotid pulse no bruit, No LAD, Without JVD or thyroid abnormality Respiratory: Clear to auscultation bilaterally, Normal air movement Cardiovascular: Regular rate/rhythm, Normal S1 S2 Gastrointestinal: Normal bowel sounds, No tenderness Musculoskeletal: No tenderness Integumentary: Tenderness/swelling, Erythema, Other (Cellulitis right lower extremity with significant edema, erythema around the ankle/calf area) Neurological: Normal speech, Normal strength at 5/5 x4 extr, Normal tone, Normal affect - Studies Laboratory Data (last 24 hrs) 11/07/22 11/07/22 11/07/22 20:45 20:45 20:45 WBC 11.90 H Hgb 11.8 L Hct 35.6 L Plt Count 304 PT 13.1 H INR 1.19 Sodium 135 L Potassium 3.3 L BUN 14 Creatinine 1.13 Glucose 119 H Magnesium 1.9 Total Bilirubin 1.7 H AST 35 ALT 49 Alkaline Phosphatase 78 Assessment and Plan - Plan Assessment: Right lower extremity cellulitis Alcohol use disorder Hypokalemia Plan: Right lower extremity cellulitis Blood cultures obtained, continue broad-spectrum evaluation with vancomycin/cefepime Alcohol use disorder Last drink about 3 days ago, monitor for signs alcohol drawl, as needed benzodiazepines, folic acid/thiamine/banana bag. Hypokalemia Replaced in ED, protocol in place. DVT PPX: Lovenox Code status: Full Discharge Plan: Home Plan to discharge in: 48 Hours - Advance Directives Does patient have a Living Will: No Does patient have a Durable POA for Healthcare: No - Code Status/Comfort Care Code Status Assessed: Yes (Full code) Critical Care: No Time Spent Managing Pts Care (In Minutes): 55
[2022-11-07] MEDS ORDERED: NICOTINE 21 MG/PAT TD ONE (22:15)
[2022-11-07] MEDS ORDERED: POTASSIUM 25 MEQ EFFERV TAB ONE (22:15)
[2022-11-08] MEDS ORDERED: VANCOMYCIN 1 GM in NA CHLORIDE 0.9% 250 ML IVPB SCH (00:51)
[2022-11-08] MEDS ORDERED: chlordiazePOXIDE HCl 5 MG CAP PO PRN (00:51)
[2022-11-08] MEDS ORDERED: ONDANSETRON 4 MG/2 ML VIAL IV PRN (00:51)
[2022-11-08 00:53] VITALS: BMI 24.3
[2022-11-08] MEDS: HYDROCODONE/APAP 5/325 MG TAB PO PRN ×2 (01:36→09:48)
[2022-11-08 01:53] VITALS: O2SAT 96
[2022-11-08 02:11] LABS: Specific Gravity 1.028 (1.005-1.030); Urine Bacteria None Seen /HPF (<20); Urine Bilirubin NEGATIVE (Negative); Urine Blood Negative (Negative); Urine Clarity Clear (Clear); Urine Color Yellow (Yellow); Urine Glucose NEGATIVE (Negative); Urine Mucus Slight /HPF (None Seen); Urine Protein TRACE (Negative); Urine RBC <5 /HPF (None Seen); Urine Urobilinogen 3+ (Normal)
[2022-11-08 06:37] LABS: Absolute Lymphocytes (CBC) 1.6 K/uL (0.7-4.9); Hematocrit 34.6 % (39.6-49.0); Lymphocytes % 20.1 % (15.3-44.8); MPV 7.8 fL (7.6-11.3); Platelets 262 thou/uL (152-406); RBC Red Blood Cell Count 3.65 M/uL (4.33-5.43)
[2022-11-08 06:53] LABS: Albumin 2.5 g/dL (3.4-5.0); Bilirubin Total 0.7 mg/dL (0.2-1.0); Potassium 3.6 mEq/L (3.5-5.1); Protein, Total 5.9 g/dL (6.4-8.2)
[2022-11-08] MEDS ORDERED: VANCOMYCIN 1.5 GM in NA CHLORIDE 0.9% 500 ML IVPB SCH (09:00)
[2022-11-08] MEDS ORDERED: FOLIC ACID 1 MG, MULTIVITAMINS INJ 10 ML, THIAMINE HCL 100 MG in NA CHLORIDE 0.9% 1,000 ML IV SCH (09:00)
[2022-11-08] MEDS: NICOTINE 21 MG/PAT TD SCH (09:07)
[2022-11-08] MEDS: CEFEPIME 1 GM in NA CHLORIDE 0.9% 100 ML IV SCH ×2 (09:08→20:52)
[2022-11-08] MEDS: ENOXAPARIN 40 MG/0.4 ML SQ SCH (09:48)
[2022-11-08] MEDS: VANCOMYCIN 1.25 GM in NA CHLORIDE 0.9% 250 ML IVPB SCH ×2 (09:48→21:44)
--- NOTE | 2022-11-08 10:25 | P.PN ---
Subjective Date of Service: 11/08/22 Chief Complaint: Right lower extremity cellulitis Subjective: Improving (Patient 57 years of age homeless admitted with lower extremity swelling and pain in his right leg. Patient is usually fishing also complains of shortness of breath is an alcoholic heavy smoker) Review of Systems General: Weakness Respiratory: Cough, Shortness of Breath Musculoskeletal: Leg Pain Physical Examination - Vital Signs Temperature: 97.8 F Blood Pressure: 111/67 Pulse: 62 Respirations: 14 Pulse Ox (%): 97 - Physical Exam General: Alert, In no apparent distress, Oriented x3 Neck: Supple Respiratory: Clear to auscultation bilaterally Cardiovascular: Regular rate/rhythm, Normal S1 S2, Edema (Significant edema of his right foot with discoloration) Gastrointestinal: Normal bowel sounds Musculoskeletal: No clubbing Lymphatics: Inguinal lymphadenopathy (Patient has right inguinal node 4 cm) - Studies Laboratory Data (last 24 hrs) 11/07/22 11/07/22 11/07/22 20:45 20:45 20:45 WBC 11.90 H Hgb 11.8 L Hct 35.6 L Plt Count 304 PT 13.1 H INR 1.19 Sodium 135 L Potassium 3.3 L BUN 14 Creatinine 1.13 Glucose 119 H Magnesium 1.9 Total Bilirubin 1.7 H AST 35 ALT 49 Alkaline Phosphatase 78 Assessment And Plan - Current Problems (Diagnosis) (1) Cellulitis and abscess of foot Current Visit: Yes Status: Acute Plan: Patient is 57 years of age admitted with right leg cellulitis he is homeless heavy smoker alcoholic plans a lot of time fishing continue with broad-spectrum antibiotics including cefepime vancomycin have also added ciprofloxacin for vibrio infection Labs reviewed all improving probably has underlying COPD DT precautions bronchodilators patient also has an inguinal node about 4 cm in the right groin Zoom reactive lymphadenopathy from his infection
[2022-11-08] MEDS: DULERA 200/5 (MOMETASONE/FORMOTEROL) INHALER IH SCH ×2 (11:00→20:52)
[2022-11-08] MEDS: THIAMINE HCL 100 MG TABLET PO SCH ×2 (12:12→20:52)
[2022-11-08] MEDS: HYDROCODONE/APAP 10/325 TAB PO PRN ×2 (12:12→20:53)
[2022-11-08] MEDS: CIPROFLOXACIN HCL 500 MG TAB PO SCH ×2 (12:12→20:51)
[2022-11-08] MEDS: ALBUTEROL 2.5 MG/3 ML NEB SOL IH SCH ×2 (14:05→20:00)
[2022-11-08] MEDS ORDERED: POTASSIUM 25 MEQ EFFERV TAB PO ONE (19:23)
[2022-11-09] MEDS: ALBUTEROL 2.5 MG/3 ML NEB SOL IH SCH ×4 (02:00→20:00)
[2022-11-09] MEDS: HYDROCODONE/APAP 10/325 TAB PO PRN ×3 (02:02→11:37)
[2022-11-09 08:26] LABS: Absolute Lymphocytes (CBC) 1.3 K/uL (0.7-4.9); Hematocrit 36.6 % (39.6-49.0); Lymphocytes % 22.4 % (15.3-44.8); MCV 95.6 fL (80-100); MPV 7.2 fL (7.6-11.3); Platelets 280 thou/uL (152-406); RBC Red Blood Cell Count 3.83 M/uL (4.33-5.43)
[2022-11-09] MEDS: CEFEPIME 1 GM in NA CHLORIDE 0.9% 100 ML IV SCH ×2 (08:27→20:14)
[2022-11-09] MEDS: ENOXAPARIN 40 MG/0.4 ML SQ SCH (08:27)
[2022-11-09] MEDS: FOLIC ACID 1 MG TABLET PO SCH (08:28)
[2022-11-09] MEDS: MULTIVITAMIN TAB PO SCH (08:28)
[2022-11-09] MEDS: THIAMINE HCL 100 MG TABLET PO SCH ×2 (08:28→20:13)
[2022-11-09] MEDS: DULERA 200/5 (MOMETASONE/FORMOTEROL) INHALER IH SCH ×2 (08:28→20:14)
[2022-11-09] MEDS: CIPROFLOXACIN HCL 500 MG TAB PO SCH ×2 (08:28→20:13)
[2022-11-09] MEDS: NICOTINE 21 MG/PAT TD SCH (08:29)
--- NOTE | 2022-11-09 08:42 | P.PN ---
Subjective Date of Service: 11/09/22 Chief Complaint: Right lower extremity cellulitis Subjective: Improving (Patient is still complaining of a pain in his right groin from the lymph node otherwise the swelling has decreased) Review of Systems Unremarkable Physical Examination - Vital Signs Temperature: 96.8 F Blood Pressure: 110/73 Pulse: 62 Respirations: 18 Pulse Ox (%): 96 - Physical Exam General: Alert, In no apparent distress, Oriented x3 HEENT: Atraumatic Respiratory: Clear to auscultation bilaterally Cardiovascular: No edema, Regular rate/rhythm Musculoskeletal: Other (Right leg swelling has decreased significantly still has some redness) Assessment And Plan - Current Problems (Diagnosis) (1) Cellulitis and abscess of foot Current Visit: Yes Status: Acute Plan: Patient is currently improving swelling is decreased cellulitis is improving complains of pain in his right groin from the lymphadenopathy continue with IV fluids and antibiotics for now Labs reviewed white count has declined will use Toradol for discomfort. White count is also declining patient's cultures are negative he is ambulating with a walker tomorrow can change him over to p.o. antibiotics continue with doxycycline for the possibility of vibrio and and add clindamycin (2) COPD (chronic obstructive pulmonary disease) Current Visit: Yes Status: Acute Plan: I strongly suspect that he has underlying COPD heavy smoker continue with inhaled bronchodilator Qualifiers: Emphysema type: unspecified
[2022-11-09 08:45] LABS: Albumin 2.3 g/dL (3.4-5.0); Bilirubin Total 0.3 mg/dL (0.2-1.0); Protein, Total 5.9 g/dL (6.4-8.2)
[2022-11-09] MEDS: VANCOMYCIN 1.25 GM in NA CHLORIDE 0.9% 250 ML IVPB SCH (09:00)
[2022-11-09] MEDS: KETOROLAC 30 MG/ML INJ IV PRN ×3 (09:09→23:03)
[2022-11-09] MEDS: VANCOMYCIN 1.5 GM in NA CHLORIDE 0.9% 500 ML IVPB SCH ×2 (09:10→20:53)
[2022-11-10] MEDS: ALBUTEROL 2.5 MG/3 ML NEB SOL IH SCH ×4 (02:00→19:55)
[2022-11-10 03:16] LABS: Absolute Lymphocytes (CBC) 0.9 K/uL (0.7-4.9); Hematocrit 34.7 % (39.6-49.0); Lymphocytes % 16.7 % (15.3-44.8); MPV 7.7 fL (7.6-11.3); Platelets 318 thou/uL (152-406); RBC Red Blood Cell Count 3.65 M/uL (4.33-5.43)
[2022-11-10 03:39] LABS: Albumin 2.2 g/dL (3.4-5.0); Bilirubin Total 0.3 mg/dL (0.2-1.0); Potassium 4.3 mEq/L (3.5-5.1); Protein, Total 5.7 g/dL (6.4-8.2)
[2022-11-10] MEDS: DULERA 200/5 (MOMETASONE/FORMOTEROL) INHALER IH SCH ×2 (09:00→21:00)
[2022-11-10] MEDS: THIAMINE HCL 100 MG TABLET PO SCH ×2 (09:37→21:42)
[2022-11-10] MEDS: NICOTINE 21 MG/PAT TD SCH (09:38)
[2022-11-10] MEDS: FOLIC ACID 1 MG TABLET PO SCH (09:38)
[2022-11-10] MEDS: ENOXAPARIN 40 MG/0.4 ML SQ SCH (09:39)
[2022-11-10] MEDS: CIPROFLOXACIN HCL 500 MG TAB PO SCH (09:42)
[2022-11-10] MEDS: MULTIVITAMIN TAB PO SCH (09:43)
[2022-11-10] MEDS: DOXYCYCLINE 100 MG CAP PO SCH ×2 (09:43→21:42)
--- NOTE | 2022-11-10 12:42 | P.PN ---
Subjective Date of Service: 11/10/22 Chief Complaint: Right lower extremity cellulitis No acute events overnight. He reports modest improvement in his right lower extremity pain. He notes the swelling has also improved. He denies any fevers, chills, chest pain, or shortness of breath. Review of Systems 10-point ROS is otherwise unremarkable Integumentary: Rash (RLE cellulitis) Physical Examination - Vital Signs Temperature: 99.3 F Blood Pressure: 131/81 Pulse: 69 Respirations: 16 Pulse Ox (%): 96 - Physical Exam General: Alert, In no apparent distress, Oriented x3 HEENT: Atraumatic, Mucous membr. moist/pink, Sclerae nonicteric Neck: JVD not distended Respiratory: Clear to auscultation bilaterally, Normal air movement Cardiovascular: No edema, Regular rate/rhythm, Normal S1 S2, No gallops, No rubs, No murmurs Gastrointestinal: Normal bowel sounds, Soft and benign, Non-distended, No tenderness, No rebound, No guarding Musculoskeletal: No clubbing Integumentary: Tenderness/swelling (RLE), Erythema (RLE), Warmth (RLE) Neurological: Normal speech, Normal affect Assessment And Plan - Plan # Right Lower Extremity Cellulitis - Does not meet sepsis criteria - Right lower extremity Doppler = "no evidence of deep venous thrombosis involving either lower extremity. 3.7 x 1.2 centimeter right inguinal lymph node probably reactive in nature. However, follow up ultrasound 3 months recommended to assess stability/ resolution." He was informed of the lymphadenopathy and advised to follow-up with PCP as an outpatient. He verbalized understanding and agreed to make this follow-up appointment. - Despite multiple days of IV antibiotics, he continues to have low-grade temperatures and severe tenderness. Requested CT right lower extremity If positive, consult General Surgery - Continue ciprofloxacin + doxycycline - PRN pain control # Alcohol Use Disorder - Appears comfortable, without evidence of alcohol withdrawal syndrome - Continue thiamine, folic acid - PRN chlordiazepoxide Karson Smallwood M.D.
[2022-11-10] MEDS ORDERED: HYDROCODONE/APAP 10/325 TAB PO PRN (12:59)
--- NOTE | 2022-11-10 13:08 | EKG ---
Test Date: 2022-11-07 Test Time: 20:43:54 Academic Affairs Specialist: JUANITA MEASUREMENT RESULTS: Intervals: Rate: 83 MO: 132 QRSD: 94 QT: 394 QTc: 462 [place]: P: 66 MO: 132 QRS: 78 T: 65 INTERPRETIVE STATEMENTS: Normal sinus rhythm Normal ECG Compared to ECG 12/22/2021 02:22:59 No significant changes Electronically Signed On 11-10-22 13:05:30 CDT by Tobin Monahan
--- NOTE | 2022-11-10 13:24 | RAD REPORT ---
EXAM DESCRIPTION: CT - Low Extremity Wo Cont - 11/10/2022 1:04 pm CLINICAL HISTORY: Leg swelling. Cellulitis COMPARISON: None. TECHNIQUE: Computed axial tomography obtained from the right knee to the right foot. Coronal sagitta l reconstruction. Some of the images are suboptimal secondary patient motion artifact. All CT scans are performed using dose optimization technique as appropriate and may include automated exposure control or mA/KV adjustment according to patient size. FINDINGS: Diffuse edema is present within the subcutaneous tissues. No bony destructive lesion is seen. No soft tissue abscess visualized. Small lucency calcaneus with a sclerotic border is benign IMPRESSION: Cellulitis. No evidence of osteomyelitis or abscess
[2022-11-10] MEDS: CEFTRIAXONE 1,000 MG in NA CHLORIDE 0.9% 50 ML IVPB SCH (14:06)
--- NOTE | 2022-11-10 20:00 | CON ---
Date of Consultation: 11/10/2022 Reason For Service: Colitis of the right lower extremity. History Of Present Illness: This is the case of a 57-year-old patient with multiple medical problems , came here, admitted about 3 days ago with 3-4 days history of right lower extremity swelling, redne ss, increased temperature with no specific trauma that he can recall. He denies any dysuria, hematur ia, hematochezia, melena. Denies any recent traveling out of the country. Denies any family member sick at home. Past Medical History: Depression, chronic alcohol use. Past Surgical History: Includes appendectomy. Family History: Noncontributory. Social History: He does not smoke. He drinks alcohol occasionally, but when he drinks, he drinks ab out 15 beers in a day. Review of Systems: The patient feels better. He has been here about 3 days already. He stated swelling is coming down and I can see the wrinkles already in his legs. No fevers recently. No Homans signs. No drainage, although there is still some tenderness present on the lower 2/3 of the leg. Ten points otherwise un remarkable. Physical Examination: General: The patient is awake, alert. HEENT: Pupils are equal and reactive. Anicteric. Neck: Supple. Chest: Clear. Heart: S1, S2. Abdomen: Soft and depressible. Extremities: Good capillary refill. Integumentary: Shows erythema and increased temperature over the lower distal 2/3 of the leg, more p ronounced near the Achilles tendon. No fluctuance or crepitus at this moment. No Homans signs prese nt. There are a lot of wrinkles already on the leg. Apparently, evidence of previous swelling that is just improving. No open wounds seen. Neurological: Oriented x3. Laboratory Data: Blood work shows WBC count of 5.6, came down from 11.9. Hemoglobin is 11.4, platel ets of 318. INR is 1.19. Sodium is 139, bicarb is 27, lactic acid 2.1 few days ago. Total bilirubi n of 0.3. UA; nitrite negative. Venous Doppler on 11/07/2022 shows no evidence of DVTs, 3.7 lymph n ode on the right groin region. CAT scan of the lower leg on 11/10 today, shows cellulitis, no eviden ce of osteomyelitis or abscess. Assessment: This is a 57-year-old patient with right lower extremity cellulitis, it is improving. H e has some venous stasis disease present. Pulses still present. No fluctuance. No crepitus. We ar e going to continue with conservative treatment and leg elevation. Once again, he was counseled abou t alcohol cessation. He should follow up in my office as an outpatient. He should also be follow by [facility] eventually for chronic venous disease. CESAR/MAGALY Voice ID: [id number] Report ID: [id number]
--- NOTE | 2022-11-10 21:12 | P.PN ---
Date of Service: 11/11/22 Subjective: Patient continues to improve. Erythema is much better. Anticipate discharge in the morning Vital signs: Reviewed Physical Exam: GEN: Alert, oriented, NAD CV: Regular rate & rhythm, no edema Pulm: Nonlabored respiraitons on room air ABD: Soft, nontender, nondistended MSK: No joint tenderness Integumentary: Erythema and no significant edema at this time Neuro: no Focal deficits Problem List: 1. Right Lower Extremity Cellulitis 2. Alcohol Use Disorder PLAN PLAN: 1. Continue with IV antibiotic 2. Continue with local wound care 3. Social service consultation 4. Gentle hydration 5. Monitor CBC 6. Strict blood sugar monitoring 7. Pain control 8. GI and DVT prophylaxis
[2022-11-10] MEDS: KETOROLAC 30 MG/ML INJ IV PRN (21:42)
[2022-11-11] MEDS: ALBUTEROL 2.5 MG/3 ML NEB SOL IH SCH ×4 (01:10→20:00)
[2022-11-11] MEDS: MULTIVITAMIN TAB PO SCH (08:46)
[2022-11-11] MEDS: KETOROLAC 30 MG/ML INJ IV PRN ×2 (08:46→16:30)
[2022-11-11] MEDS: THIAMINE HCL 100 MG TABLET PO SCH ×2 (08:46→20:19)
[2022-11-11] MEDS: FOLIC ACID 1 MG TABLET PO SCH (08:46)
[2022-11-11] MEDS: DOXYCYCLINE 100 MG CAP PO SCH (08:46)
[2022-11-11] MEDS: ENOXAPARIN 40 MG/0.4 ML SQ SCH (08:47)
[2022-11-11] MEDS: NICOTINE 21 MG/PAT TD SCH (08:47)
[2022-11-11] MEDS: CEFTRIAXONE 1,000 MG in NA CHLORIDE 0.9% 50 ML IVPB SCH (08:47)
[2022-11-11] MEDS: DULERA 200/5 (MOMETASONE/FORMOTEROL) INHALER IH SCH ×2 (08:47→20:20)
[2022-11-11] MEDS: CIPROFLOXACIN HCL 250 MG TAB PO SCH (20:19)
[2022-11-12] MEDS: ALBUTEROL 2.5 MG/3 ML NEB SOL IH SCH ×2 (02:00→08:00)
[2022-11-12] MEDS: NICOTINE 21 MG/PAT TD SCH (08:25)
[2022-11-12] MEDS: CIPROFLOXACIN HCL 250 MG TAB PO SCH (08:25)
[2022-11-12] MEDS: FOLIC ACID 1 MG TABLET PO SCH (08:25)
[2022-11-12] MEDS: THIAMINE HCL 100 MG TABLET PO SCH (08:25)
[2022-11-12] MEDS: ENOXAPARIN 40 MG/0.4 ML SQ SCH (08:25)
[2022-11-12] MEDS: MULTIVITAMIN TAB PO SCH (08:25)
[2022-11-12] MEDS: DULERA 200/5 (MOMETASONE/FORMOTEROL) INHALER IH SCH (08:26)
[2022-11-12] MEDS: KETOROLAC 30 MG/ML INJ IV PRN (08:31)
[2022-11-12 08:54] VITALS: BP 118/73; TEMP 97.5
== END 2022-11-12 12:06 | disposition home or self-care (01) | DRG 603 ==
LOC: ER 20:21 → ERHOLD 21:50 → 2ND 11-08 00:19
PROVIDERS: ADMIT Internal Medicine Sleep Medicine; ATTEND Hospitalist
DX: L03.115 Cellulitis of right lower limb (principal); I10 Essential (primary) hypertension; F10.20 Alcohol dependence, uncomplicated; F32.A Depression, unspecified; I87.8 Other specified disorders of veins; E87.6 Hypokalemia; F17.210 Nicotine dependence, cigarettes, uncomplicated; R59.1 Generalized enlarged lymph nodes; Z90.49 Acquired absence of other specified parts of digestive tract; Z59.00 Homelessness unspecified; Z71.41 Alcohol abuse counseling and surveillance of alcoholic
CPT/HCPCS: 36415; 71045; 73700; 80048; 80053; 80076; 80143; 80179; 80202; 81001; 82077; 83605; 83735; 83880; 84484; 85025; 85610; 87040; 93005; 93970; 94640; 96365; 96367; 96368; 96375; 99285; J0692; J0696; J1650; J2543; J3411; J3535; J7030; J7040; J7050; J7613